=== PATIENT | male | born 1970 | race Caucasian/White ===

== ENCOUNTER 2025-05-01 19:55 | Emergency (ER) | payer OTHER ==
[~2025-05-01] VITALS: Ht 167.6 cm; Wt 68.0 kg
[2025-05-01 20:21] LABS: BASOPHILS ABSOLUTE AUTO 0.06 K/mm3 (0.00-0.23); BASOPHILS PERCENT AUTO 0 % (0-2); EOSINOPHILS ABSOLUTE AUTO 0.05 K/mm3 (0.00-0.68); EOSINOPHILS PERCENT AUTO 0 % (0-6); Hematocrit 40.3 % (37.0-53.0); Hemoglobin 13.4 g/dL (13.5-17.5); IMMATURE GRAN ABSOLUTE AUTO 0.10 K/mm3 (0.00-0.10); IMMATURE GRAN PERCENT AUTO 1 % (0-1); LYMPHOCYTES ABSOLUTE AUTO 2.55 K/mm3 (0.84-5.20); LYMPHOCYTES PERCENT AUTO 14 % (21-46); MONOCYTES ABSOLUTE AUTO 1.21 K/mm3 (0.16-1.47); MONOCYTES PERCENT AUTO 6 % (4-13); Mean Corpuscular HGB Conc 33.3 g/dL (31.5-36.5); Mean Corpuscular Volume 87 fL (80-100); NEUTROPHILS ABSOLUTE AUTO 14.91 K/mm3 (1.96-9.15); NEUTROPHILS PERCENT AUTO 79 % (41-73); NRBC ABSOLUTE 0.00 K/mm3 (0.00-0.02); NRBC Auto 0.0 /100 WBC (0.0-0.2); Platelet Count 537 K/mm3 (150-400); RDW Coefficient Variation 13.9 % (11.7-14.2); RDW Standard Deviation 43.5 fL (35.1-46.3)
[2025-05-01 20:57] LABS: Alanine Aminotransfer (ALT/SGP 43.0 U/L (12-78); Albumin, Blood 3.2 g/dL (3.4-5.0); Albumin/Globulin Ratio 1.0 (0.8-1.8); Anion Gap 7.0 mmol/L (3-11); Aspartate Aminotrans (AST/SGOT 57.0 U/L (12-37); Bilirubin, Total 0.5 mg/dL (0.1-1.0); Blood Urea Nitrogen 13.0 mg/dL (8-24); CO2, Blood 30.0 mmol/L (21-32); Calcium, Blood 8.6 mg/dL (8.5-10.1); Chloride, Blood 102.0 mmol/L (98-108); Creatinine, Blood 0.8 mg/dL (0.60-1.20); Globulin, Blood 3.3 g/dL (2.2-4.0); Glucose, Blood 129.0 mg/dL (70-99); Potassium, Blood 3.8 mmol/L (3.5-5.5); Sodium, Blood 135.0 mmol/L (136-145); Total Protein, Blood 6.5 g/dL (6.4-8.2)
[2025-05-01] MEDS ORDERED: QUET200 PO (21:09)
== END 2025-05-01 23:09 | disposition home or self-care (01) ==
LOC: ER 19:55
PROVIDERS: Student in an Organized Health Care Education/Training Program
DX: S40.022A Contusion of left upper arm, initial encounter (principal); Y04.0XXA Assault by unarmed brawl or fight, initial encounter; Z79.899 Other long term (current) drug therapy
CPT/HCPCS: 71046; 73060; 80053; 85025; 90471; 90715; 99284-25; A9270

== ENCOUNTER 2025-05-02 02:22 | Emergency (ER) | payer OTHER ==
[~2025-05-02] VITALS: Ht 170.2 cm; Wt 56.7 kg
[~2025-05-02 02:22] MED LIST: QUET200 PO
== END 2025-05-02 08:55 | disposition home or self-care (01) ==
LOC: ER 02:22
DX: Z76.89 Persons encountering health services in other specified circumstances (principal); Z59.00 Homelessness unspecified
CPT/HCPCS: 99284

== ENCOUNTER 2025-05-04 08:52 | Emergency (ER) | payer OTHER ==
[~2025-05-04] VITALS: Ht 170.2 cm; Wt 56.7 kg
[2025-05-04] MEDS ORDERED: METHOTREXATE2.510 PO (10:59)
[2025-05-04] MEDS ORDERED: FOLI1 PO (10:59)
[2025-05-04] MEDS ORDERED: QUET200 PO (12:32)
== END 2025-05-04 12:40 | disposition home or self-care (01) ==
LOC: ER 08:52
DX: Z76.0 Encounter for issue of repeat prescription (principal); F17.220 Nicotine dependence, chewing tobacco, uncomplicated; Z59.10 Inadequate housing, unspecified; Z79.899 Other long term (current) drug therapy
CPT/HCPCS: 99281